=== PATIENT | male | born 2000 | race Two or more races ===

== ENCOUNTER 2022-02-17 21:43 | Emergency (ER) | payer MEDICAID ==
[~2022-02-17] VITALS: Ht 172.7 cm; Wt 59.0 kg
[2022-02-17 21:52] VITALS: BP_SYST 135
[2022-02-17] MEDS ORDERED: IBUPROFEN 600 MG TABLET PO ONE (23:15)
[2022-02-17] MEDS ORDERED: cephALEXin 500 MG CAPSULE PO ONE (23:15)
[2022-02-17] MEDS ORDERED: BUPIVACAINE /PF 0.25% 30 ML VIAL INJ ONE (23:15)
[2022-02-17] MEDS ORDERED: DIPHTH,PERTUSS(ACELL),TET VAC 0.5 ML VIAL (Tdap) I.M. ONE (23:30)
[2022-02-17] MEDS ORDERED: CEPH250C PO (23:33)
[2022-02-17] MEDS ORDERED: ACET12.55 PO (23:33)
[2022-02-18 00:29] VITALS: BP_SYST 124
[2022-02-18] MEDS ORDERED: BACITRACIN 1 GM OINT TP ONE (01:11)
== END 2022-02-18 00:25 | disposition home or self-care (01) ==
LOC: SED 21:43
DX: S62.637B Displaced fracture of distal phalanx of left little finger, initial encounter for open fracture (principal); Z79.899 Other long term (current) drug therapy; W23.0XXA Caught, crushed, jammed, or pinched between moving objects, initial encounter; Y93.89 Activity, other specified; Y92.89 Other specified places as the place of occurrence of the external cause; Y99.8 Other external cause status
CPT/HCPCS: 99283; 73140; 29130; J3490

== ENCOUNTER 2022-02-28 08:52 | Emergency (ER) | payer MEDICAID ==
[~2022-02-28] VITALS: Ht 172.7 cm; Wt 59.0 kg
[~2022-02-28 08:52] MED LIST: ACET12.55 PO; CEPH250C PO
--- NOTE | 2022-02-28 09:00 | NUR ---
Patient to ER bed H1 to gown for evaluation. Side rails up.
[2022-02-28 09:01] VITALS: BP_SYST 116
--- NOTE | 2022-02-28 09:10 | NUR ---
PT BIB SELF AWAKE AND ALERT AOX4, NO SOB OR DISTRESS. PT CAME TO ER TO HAVE STICHES REMOVED FROM HIS LEFT PINKY FINGER. NO BLEEDING OBSERVED.
--- NOTE | 2022-02-28 09:30 | NUR ---
ER DR. MCNAIR EXAMINING PT
--- NOTE | 2022-02-28 09:46 | NUR ---
Patient given written and verbal discharge instructions and verbalizes understanding. ER MD DR MCNAIR discussed with patient the results and treatment provided. Patient in stable condition. ID arm band removed. Patient educated on pain management and to follow up with PMD. Pain Scale 0/10. Opportunity for questions provided and answered. Medication side effect fact sheet provided.
[2022-02-28 09:48] VITALS: BP_SYST 116
== END 2022-02-28 09:46 | disposition home or self-care (01) ==
LOC: SED 08:52
DX: Z48.02 Encounter for removal of sutures (principal); Z79.899 Other long term (current) drug therapy
CPT/HCPCS: 99281

== ENCOUNTER 2023-01-22 09:40 | Inpatient (IN) | payer MEDICAID ==
[~2023-01-22] VITALS: Ht 172.7 cm; Wt 69.1 kg
[2023-01-22 09:47] VITALS: BP_SYST 124; PULSE 68; RESP 20; TEMP 98.3; O2SAT 98
[2023-01-22 10:22] LABS: BASOPHILS % (AUTO) 0.2 % (0.0-2.0); HEMOGLOBIN 15.3 g/dL (14.0-18.0); LYMPHOCYTES # (AUTO) 0.8 K/uL (1.0-5.5); LYMPHOCYTES % (AUTO) 4.8 % (20.5-51.5); MEAN CORPUSCULAR HEMOGLOBIN 31 pg (27-31); MEAN CORPUSCULAR HGB CONC 33 % (32-36); MEAN CORPUSCULAR VOLUME 92 fL (79.0-98.0); MONOCYTES # (AUTO) 0.6 K/uL (0.0-1.0); MONOCYTES % (AUTO) 3.7 % (1.7-9.3); NEUTROPHILS # (AUTO) 14.5 K/uL (1.8-7.7); NEUTROPHILS % (AUTO) 91.3 % (40.0-70.0); PLATELET COUNT (AUTO) 234 K/uL (130-430); RED BLOOD CELL COUNT(AUTO) 5.01 MIL/uL (4.2-6.2); WHITE BLOOD COUNT (AUTO) 15.9 K/uL (4.5-11.0)
[2023-01-22 10:48] LABS: ALANINE AMINOTRANSFERASE 23 U/L (12-78); ALBUMIN 4.4 g/dL (3.4-4.8); ANION GAP 8 (5-15); ASPARTATE AMINOTRANSFERASE 20 U/L (10-37); CALCIUM 9.6 mg/dL (8.4-11.0); CARBON DIOXIDE 27 mmol/L (23-29); CHLORIDE 103 mmol/L (98-107); CREATININE 0.84 mg/dL (0.55-1.30); GFR AFRICAN AMERICAN 150 mL/min (>90); GFR NON AFRICAN-AMERICAN 124 mL/min (>90); GLUCOSE 112 mg/dL (74-106); POTASSIUM 4.3 mmol/L (3.5-5.1); SODIUM SERUM 138 mmol/L (136-145); UREA NITROGEN, BLOOD 22 mg/dL (8-21)
[2023-01-22 10:51] LABS: AMYLASE 55 U/L (0-100); LIPASE 35 U/L (73-393)
[2023-01-22 10:52] LABS: ACETONE, SERUM NEGATIVE (NEGATIVE)
[2023-01-22] MEDS ORDERED: MORPHINE 4 MG INJ. 4 MG/ML VIAL IVP ONE (11:30)
[2023-01-22] MEDS ORDERED: NACL 0.9% 1,000 ML IV ONE (11:30)
[2023-01-22] MEDS ORDERED: PIPERACILLIN/TAZO 3.375 GM in NS 50 ML IV ONE (11:30)
[2023-01-22] MEDS ORDERED: MORPHINE 2 MG/ML INJ. SYRINGE IVP PRN ×3 (12:00→14:15)
[2023-01-22] MEDS ORDERED: D5NS 1,000 ML IV ONE (12:00)
[2023-01-22] MEDS ORDERED: PIPERACILLIN/TAZOBACTAM 3.375 GM/VIAL (ZOSYN) IV ONE (12:04)
[2023-01-22 12:26] LABS: BILIRUBIN,URINE NEGATIVE (NEGATIVE); BLOOD, URINE NEGATIVE (NEGATIVE); CLARITY/URINE TURBID (CLEAR); COLOR,URINE YELLOW (YELLOW); GLUCOSE,URINE NEGATIVE (NEGATIVE); KETONES,URINE 3+ (NEGATIVE); LEUKOCYTE ESTERASE ,URINE NEGATIVE (NEGATIVE); NITRITE, URINE NEGATIVE (NEGATIVE); PROTEIN URINE 1+ (NEGATIVE); UROBILINOGEN,URINE 0.2 (0.2-1.0)
[2023-01-22 13:09] LABS: BACTERIA,URINE None Seen /HPF (None Seen); RBC,URINE NONE SEEN /HPF (0-3); WBC,URINE NONE SEEN /HPF (0-3)
[2023-01-22 13:10] LABS: URINE AMORPHOUS URATE 4+ /HPF (None Seen)
[2023-01-22 14:15] VITALS: BP_SYST 120; PULSE 65; RESP 16; RESP 18; TEMP 98.2; O2SAT 100
[2023-01-22] MEDS ORDERED: ONDANSETRON HCL 4 MG/2 ML VIAL IVP PRN ×2 (14:15→22:45)
[2023-01-22] MEDS ORDERED: LORazepam 2 MG/ML VIAL IVP PRN (14:15)
[2023-01-22] MEDS ORDERED: POTASSIUM CHLORIDE 20 MEQ TAB.PRT.SR PO PRN (14:15)
[2023-01-22] MEDS ORDERED: NALOXONE HCL 0.4 MG/ML AMP (NARCAN) IVP PRN ×5 (14:15→22:45)
[2023-01-22] MEDS ORDERED: DOCUSATE SODIUM 100 MG CAPSULE PO PRN (14:15)
[2023-01-22] MEDS ORDERED: ACETAMINOPHEN 325 MG TABLET PO PRN ×2 (14:15→14:30)
[2023-01-22] MEDS ORDERED: MAGNESIUM SULFATE 50 ML IV PRN (14:15)
[2023-01-22] MEDS ORDERED: MUPIROCIN 2% TOPICAL OINTMENT 22 GM NS PRN (14:15)
[2023-01-22] MEDS ORDERED: ZOLPIDEM TARTRATE 5 MG TABLET PO PRN (14:15)
[2023-01-22] MEDS: D5NS 1,000 ML IV SCH (14:43)
[2023-01-22 16:00] VITALS: BP_SYST 113; PULSE 55; RESP 18; TEMP 97.7; O2SAT 100
[2023-01-22] MEDS: PIPERACILLIN/TAZO 3.375/DEX-IS 50 ML IV SCH (18:13)
[2023-01-22 20:00] VITALS: BP_SYST 122; PULSE 64; RESP 17; TEMP 98.3; O2SAT 99
[2023-01-22] MEDS ORDERED: MIDAZOLAM HCL 5 MG/5 ML VIAL ONE (21:00)
[2023-01-22] MEDS ORDERED: WATER FOR IRRIGATION,STERILE 1,000 ML IRRIG.SOLN IR ONE (21:00)
[2023-01-22] MEDS ORDERED: ROCURONIUM BROMIDE 10 MG/ML (ZEMURON) ONE (21:00)
[2023-01-22] MEDS ORDERED: PROPOFOL 200MG/ 20ML VIAL (DIPRIVAN) IV ONE (21:00)
[2023-01-22] MEDS ORDERED: ONDANSETRON HCL 4 MG/2 ML VIAL ONE (21:00)
[2023-01-22] MEDS ORDERED: BUPIVACAINE /PF 0.25% 30 ML VIAL INJ ONE (21:00)
[2023-01-22] MEDS ORDERED: SEVOFLURANE 15 MIN GAS INH ONE (21:00)
[2023-01-22] MEDS ORDERED: SUCCINYLCHOLINE CHLORIDE 20 MG/ML(QUELICIN) ONE (21:00)
[2023-01-22] MEDS ORDERED: NEOSTIGMINE METHYLSULFATE 1 MG/ML, 10 ML VIAL ONE (21:00)
[2023-01-22] MEDS ORDERED: MIDAZOLAM HCL 2 MG/2 ML VIAL (VERSED) ONE (21:00)
[2023-01-22] MEDS ORDERED: LR 1,000 ML IV.SOLN IV ONE (21:00)
[2023-01-22] MEDS ORDERED: NS IRRIG SOLN 1000 ML IR ONE (21:00)
[2023-01-22] MEDS ORDERED: HYDROmorphone 2 MG/ML VIAL ONE ×2 (21:00→21:01)
[2023-01-22] MEDS ORDERED: GLYCOPYRROLATE 0.2 MG/ML VIAL ONE (21:00)
[2023-01-22] MEDS ORDERED: DEXAMETHASONE SOD PHOSPHATE 4 MG/ML VIAL ONE (21:00)
[2023-01-22] MEDS ORDERED: BUPIVACAINE LIPOSOME/PF 266 MG/20 ML VIAL INFIL ONE (22:10)
[2023-01-22] MEDS ORDERED: METOCLOPRAMIDE HCL 10 MG/2 ML VIAL IVP PRN (22:45)
[2023-01-22] MEDS ORDERED: HYDROmorphone 1 MG/ML INJ. CARTRIDGE IVP PRN ×2 (22:45)
[2023-01-23] VITALS (7 sets, daily range): BP systolic 108–127; PULSE 54–68; RESP 16–18; TEMP 97.5–98.1; O2SAT 98–100
[2023-01-23] MEDS: PIPERACILLIN/TAZO 3.375/DEX-IS 50 ML IV SCH ×3 (00:46→12:58)
[2023-01-23] MEDS: D5NS 1,000 ML IV SCH ×2 (02:46→10:15)
[2023-01-23 05:40] LABS: BASOPHILS % (AUTO) 0.1 % (0.0-2.0); HEMATOCRIT 40.2 % (36-54); HEMOGLOBIN 13.8 g/dL (14.0-18.0); LYMPHOCYTES # (AUTO) 0.7 K/uL (1.0-5.5); LYMPHOCYTES % (AUTO) 6.6 % (20.5-51.5); MEAN CORPUSCULAR HEMOGLOBIN 31 pg (27-31); MEAN CORPUSCULAR HGB CONC 34 % (32-36); MEAN CORPUSCULAR VOLUME 91 fL (79.0-98.0); MONOCYTES # (AUTO) 0.2 K/uL (0.0-1.0); MONOCYTES % (AUTO) 1.9 % (1.7-9.3); NEUTROPHILS # (AUTO) 10.4 K/uL (1.8-7.7); NEUTROPHILS % (AUTO) 91.4 % (40.0-70.0); PLATELET COUNT (AUTO) 201 K/uL (130-430); RED BLOOD CELL COUNT(AUTO) 4.41 MIL/uL (4.2-6.2); WHITE BLOOD COUNT (AUTO) 11.4 K/uL (4.5-11.0)
[2023-01-23 06:33] LABS: CALCIUM 9.1 mg/dL (8.4-11.0); CREATININE 0.93 mg/dL (0.55-1.30); POTASSIUM 4.4 mmol/L (3.5-5.1)
[2023-01-23] MEDS ORDERED: HYDR-3917 PO (07:56)
[2023-01-23] MEDS: HYDROcodone/ACETAMIN 5-325 MG TAB (NORCO/ VICODIN) PO PRN ×2 (09:42→14:39)
[2023-01-23] MEDS ORDERED: TRAM50TA2 PO (16:51)
== END 2023-01-23 17:10 | disposition home or self-care (01) | DRG 234 ==
LOC: SED 09:40 → SMU 11:55
PROVIDERS: ADMIT General Practice; ATTEND General Practice
PROC: 0DTJ4ZZ Resection of Appendix, Percutaneous Endoscopic Approach (ICD-10-PCS; principal; 2023-01-22 21:16)
DX: K35.80 Unspecified acute appendicitis (principal); F10.90 Alcohol use, unspecified, uncomplicated; Z79.899 Other long term (current) drug therapy
CPT/HCPCS: 36415; 76376; 80048; 80053; 81000; 82009; 82150; 83037; 83605; 83690; 83735; 85025; 86886; 86900; 86901; 88304; 96365; 99285; C1727; C9290; J0330; J1100; J1170; J2250; J2270; J2405; J2543; J2704; J2710; J3465; J3490; J7120

== ENCOUNTER 2024-01-25 09:30 | Emergency (ER) | payer MEDICAID, OTHER ==
[~2024-01-25] VITALS: Ht 172.7 cm; Wt 65.8 kg
[~2024-01-25 09:30] MED LIST changes: +HYDR-3917 PO; +TRAM50TA2 PO
[2024-01-25 09:47] VITALS: BP_SYST 129; PULSE 79; RESP 16; TEMP 97.7; O2SAT 97
[2024-01-25] MEDS ORDERED: IBUP-1969 PO (10:43)
[2024-01-25] MEDS: KETOROLAC TROMETHAMINE 60 MG/2 ML VIAL IM ONE (10:55)
[2024-01-25 11:02] VITALS: BP_SYST 129; PULSE 79; RESP 16; TEMP 97.7; O2SAT 97
== END 2024-01-25 11:03 | disposition home or self-care (01) ==
LOC: SED 09:30
DX: M25.512 Pain in left shoulder (principal); Z90.49 Acquired absence of other specified parts of digestive tract
CPT/HCPCS: 99283; 96372; J1885